=== PATIENT | female | born 1985 | race Caucasian/White ===

== ENCOUNTER 2016-12-25 06:08 | Inpatient (IN) | payer OTHER ==
[~2016-12-25] VITALS: Ht 162.6 cm; Wt 135.2 kg
--- NOTE | ~2016-12-25 | S ---
[facility] [place] [address] SURGICAL PATH RPT PROCEDURE Name: GABRIEL TUCKER Room #: 416-P DIS IN M.R.#: [id number] Admission: 12/25/16 Date of : 89 Discharge: 12/26/16 Report #: [id number] Path Case #: [id number] PATHOLOGY REPORT COLLECTION DATE: 12/25/2016 RECEIVED DATE: 12/26/2016 SUBMITTING PHYS: Dr. Dallas Delaney, DO OTHER PHYS: SPECIMEN(S) RECEIVED: A.Lateral stomach * * * * * * * * * * * * FINAL DIAGNOSIS: Stomach, lateral, resection: - Mild chronic inactive gastritis. PATHOLOGIST: Lenin Alba M.D. REPORT ELECTRONICALLY SIGNED BY: Lenin Alba M.D. DATE/TIME: 12/27/2016 10:39 * * * * * * * * * * * * GROSS PATHOLOGY: The specimen is received in formalin, labeled "twan Dobson stomach". Received is a partial gastrectomy specimen with a stapled margin of resection measuring 18.6 x 6.8 x 3.8 m in greatest dimensions. The serosal surface is smooth to shaggy and pale salinas to dark champagne in appearance. Opening the specimen reveals a pale salinas to dark champagne mucosal surface displaying normal architectural folds. No lesions or nodules are noted grossly. The specimen is submitted representatively in cassette A1. (DAC; 12/26/2016) CLINICAL HISTORY: Morbid obesity INITIAL CPT CODE(S): A; 52112 Professional services performed by [facility] at [facility] [address] [place] [address] Technical services performed by [facility] at [address] [place] [id number]. [facility] [address] [place] [address] SURGICAL PATH RPT PROCEDURE Name: GABRIEL TUCKER Room #: 416-P DIS IN M.R.#: [id number] Admission: 12/25/16 Date of : 89 Discharge: 12/26/16 Report #: [id number] Path Case #: [id number] [facility] [id number] [address] [address] PHONE: [phone] DIRECTOR: Regan Petersen M.D. * * * END OF REPORT * * *
[~2016-12-25 06:08] MED LIST: MULTIVITAMINS PO
[2016-12-25 07:13] VITALS: BP 148/90
[2016-12-25 13:45] VITALS: BP 157/91
[2016-12-25 14:15] VITALS: BP 153/84
[2016-12-25 14:45] VITALS: BP 159/101
[2016-12-25 15:15] VITALS: BP 182/92
[2016-12-25 19:42] VITALS: BP 161/87
[2016-12-26 00:07] VITALS: BP 150/86
[2016-12-26 03:50] VITALS: BP 148/88
[2016-12-26 06:10] LABS: CALCIUM 8.6 mg/dL (8.5-10.1); CREATININE 0.7 mg/dL (0.6-1.0); POTASSIUM 3.8 mmol/L (3.5-5.1)
[2016-12-26] MEDS ORDERED: MIRALAX17 GM PO (10:12)
[2016-12-26] MEDS ORDERED: ZOFRAN ODT4 MG DISSOLVE (10:12)
[2016-12-26] MEDS ORDERED: HYDROCODONE-ACE15 ML PO (10:12)
[2016-12-26 10:14] VITALS: BP 152/82
[2016-12-26 11:18] VITALS: BP 152/82
== END 2016-12-26 12:05 | disposition home or self-care (01) | DRG 621 ==
LOC: TBA 06:08 → OR 06:08 → TBA 06:09 → OR 10:43 → 4N 13:39 → ENTRNSPT 12-26 11:48 → EDTRNSPTSTS 12-26 11:49 → 4N 12-26 12:05
PROVIDERS: Surgery
PROC: 0DB64Z3 Excision of Stomach, Percutaneous Endoscopic Approach, Vertical (ICD-10-PCS; principal; 2016-12-25)
DX: E66.01 Morbid (severe) obesity due to excess calories (principal); Z68.43 Body mass index [BMI] 50.0-59.9, adult; Z88.1 Allergy status to other antibiotic agents; Z88.2 Allergy status to sulfonamides
CPT/HCPCS: 10790; 50010; 50101; 50222; 50249; 50386; 50555; 50739; 50740; 50962; 51437; 51489; 52182; 52265; 52266; 53307; 53310; 53311; 54022; 54118; 56462; 56525; 56526; 57092; 62110; 62900; 70005